=== PATIENT | female | born 1990 | race Caucasian/White ===

== ENCOUNTER 2018-05-10 11:51 | Emergency (ER) | payer SELFPAY ==
[2018-05-10 12:26] VITALS: BP 109/52
--- NOTE | 2018-05-10 15:06 | Emergency Department Report ---
ED Medical Clearance HPI - General Chief complaint: Medical Clearance Stated complaint: HEART RATE Time Seen by Provider: 05/10/18 14:50 Source: patient Mode of arrival: Ambulatory - History of Present Illness Initial comments: Patient is a 27-year-old female who is approximately 15 weeks who on routine EVALUATION ADVISOR visit they were unable to get heart tones she was sent in for an ultrasound. Patient's had no pain bleeding at this time. Allergies/Adverse reactions: Allergies Allergy/AdvReac Type Severity Reaction Status Date / Time No Known Allergies Allergy Unverified 05/10/18 12:26 ED Review of Systems ROS: Stated complaint: HEART RATE Other details as noted in HPI Comment: All other systems reviewed and negative ED Past Medical Hx - Past Medical History Previous Medical History?: No - Surgical History Past Surgical History?: No - Social History Smoking Status: Never Smoker Substance Use Type: None ED Physical Exam - General Limitations: Language Barrier General appearance: alert, in no apparent distress - Head Head exam: Present: atraumatic, normocephalic - Eye Eye exam: Present: normal appearance - ENT ENT exam: Present: mucous membranes moist - Neck Neck exam: Present: normal inspection - Respiratory Respiratory exam: Present: normal lung sounds bilaterally. Absent: respiratory distress - Cardiovascular Cardiovascular Exam: Present: regular rate, normal rhythm. Absent: systolic murmur, diastolic murmur, rubs, gallop - GI/Abdominal GI/Abdominal exam: Present: soft, normal bowel sounds - Extremities Exam Extremities exam: Present: normal inspection - Back Exam Back exam: Present: normal inspection - Neurological Exam Neurological exam: Present: alert, oriented X3 - Psychiatric Psychiatric exam: Present: normal affect, normal mood - Skin Skin exam: Present: warm, dry, intact, normal color. Absent: rash ED Course Vital Signs 05/10/18 12:20 Temperature 98.6 F Pulse Rate 62 Respiratory 16 Rate Blood Pressure 109/52 O2 Sat by Pulse 98 Oximetry ED Medical Decision Making - Radiology Data Ultrasound shows a 15-1/2 week IUP with a heart rate of 138 ED Disposition Clinical Impression: Viable Disposition: DC-01 TO HOME OR SELFCARE Is pt being admited?: No Does the pt Need Aspirin: No Condition: Stable Referrals: PRIMARY CARE, [Primary Care Provider] - 3-5 Days
--- NOTE | 2018-05-10 15:17 | Ultrasound Report ---
OB ULTRASOUND History well being, unable to detect heart rate. Technique: Transabdominal ultrasound with Doppler interrogation. Gestation: Single Position: Breech Amniotic Fluid: Within normal limits Placenta: Anterior Placental Grade: 0 Heart Rate: 138 BPM Cervical length: 3.8 cm (Normal > 3 cm) x It is too early for a anatomical survey BPD: 5.3 cm = 16 w 1 d HC: 11.9 cm = 15 w 6 d AC: 10.6 cm = 16 w 4 d FL: 1.9 cm = 15 w 4 d HC/AC Ratio: 1.13 Cephalic Index: 82.7 Estimated Weight: 144 grams LMP: 01/20/18 Clinical age = 15 w 5 d EDC: 10/27/18 US Gest. Age = 16 w 0 d EDC: 10/25/18 IMPRESSION: Viable, single intrauterine as described.
== END 2018-05-10 15:19 | disposition home or self-care (01) ==
LOC: ED 11:51
DX: Z34.92 Encounter for supervision of normal pregnancy, unspecified, second trimester (principal); Z3A.15 15 weeks gestation of pregnancy
CPT/HCPCS: 36415; 76805; 84702; 99283